=== PATIENT | female | born 1935 | race Caucasian/White ===

== ENCOUNTER 2017-02-25 08:54 | Emergency (ER) | payer MEDICARE, BC ==
[~2017-02-25 08:54] MED LIST: ARMOUR THYROID60 M1 PO; BREO ELLIP1 PUFF/DOS IH; CALCIUM600 MG PO; DULCOLAX-DPS10 MG PR; DUONEB DPS3 ML PO; LIPITOR DPS20 MG PO; MUCINEX600 MG PO; PROAIR HFA8.5 GM IH; REGLAN-DPS10 MG PO; SPIRIVA RESPIMAT4 GM IH; ULTRAM DPS50 MG PO; ZOLOFT DPS100 MG PO
--- NOTE | 2017-03-12 15:27 | ER ---
ADMIT: 02/25/2017 RM/LOC: ER [facility] MR#: [id number] [id number] [place], [place] [id number] [address] [place] [address] Emergency Room Report SEX: F AGE: 81 : 1935 DATE: 02/25/2017 ADDENDUM: An 81-year-old white female coming in with couple of problems, little short of breath, questionable chest pain, and little bit of cough. These are all chronic. She had old scars on her chest x-ray. CBC, chemistry, and troponin all nothing acute with her EKG. I think this has more to do with her chronic COPD. We are going to go ahead and let her go. She should follow up with Dr. Castro within a week if she is not better. CONDITION ON DISCHARGE: Good. Deejay Diaz MD/ supriya JOB #: [id number] CC: Deejay Diaz MD, Attending Physician UNKNOWN, Family Physician
== END 2017-02-25 12:40 | disposition home or self-care (01) ==
LOC: ER 08:54
DX: R07.89 Other chest pain (principal); R05 Cough; J44.9 Chronic obstructive pulmonary disease, unspecified; F32.9 Major depressive disorder, single episode, unspecified; E03.9 Hypothyroidism, unspecified; E78.5 Hyperlipidemia, unspecified; D64.9 Anemia, unspecified; Z88.0 Allergy status to penicillin; Z88.5 Allergy status to narcotic agent; Z88.1 Allergy status to other antibiotic agents; Z91.041 Radiographic dye allergy status